=== PATIENT | female | born 1980 ===

== ENCOUNTER 2017-04-14 10:54 | Inpatient (IN) ==
[2017-04-14] MEDS ORDERED: BUTORPHANOL 2 MG/ML VIAL IV PRN (11:36)
[2017-04-14] MEDS ORDERED: ONDANSETRON 4 MG/2 ML VIAL IV PRN (11:36)
[2017-04-14] MEDS ORDERED: MEPERIDINE 50 MG/1 ML VIAL IV PRN (11:36)
[2017-04-14] MEDS ORDERED: AMPICILLIN INJ 2,000 MG in SODIUM CHLORIDE 0.9% 50 ML IV ONE (11:37)
[2017-04-14] MEDS ORDERED: LACTATED RINGERS 1,000 ML IV SCH (12:00)
[2017-04-14] MEDS ORDERED: OXYTOCIN/LR 20 UNIT/1,000 ML BAG IV SCH (12:00)
[2017-04-14 12:04] LABS: Basophils % 0.3 % (0.0-0.8); Eosinophils % 0.2 % (0.00-10.9); Hematocrit 30.5 VOL% (35.7-47.0); Hemoglobin 9.7 GM/DL (12.0-16.0); Immature Granulocytes % 0.3 %; Immature Granulocytes Absolute 0.03 #; Lymphocytes # 1.3 10*3/uL (1.4-4.0); Lymphocytes % 14.5 % (21.3-54.2); Mean Corpuscular HGB Conc 31.8 GM/DL (32-36); Mean Corpuscular Hemoglobin 23 PG (27-34); Mean Corpuscular Volume 72.6 FL (87-102); Mean Platelet Volume 10.3 FL (9.6-12.0); Monocytes # 0.6 10*3/uL (0.11-0.8); Monocytes % 6.7 % (1.7-12.7); Neutrophils # 7.2 10*3/uL (1.4-7.4); Platelet Count 244 T/CUMM (130-400); White Blood Count 9.2 T/CUMM (4-12)
[2017-04-14 12:34] LABS: Albumin 2.7 G/DL (3.4-5.0); Bilirubin,Total 0.8 MG/DL (0.2-1.0); Calcium 8.5 MG/DL (8.5-10.1); Osmolality,Calculated 271.7 MOS/KG (273-304); Potassium 3.7 MMOL/L (3.5-5.1); Total Protein 7.4 G/DL (6.4-8.3)
[2017-04-14] MEDS ORDERED: hydrOXYzine HCL 25 MG/1 ML VIAL IM PRN (14:03)
[2017-04-14] MEDS ORDERED: ePHEDrine 50 MG/ML AMP IV PRN (14:03)
[2017-04-14] MEDS ORDERED: FAMOTIDINE 20 MG/2 ML VIAL IV ONE (14:03)
[2017-04-14] MEDS ORDERED: CITRIC ACID/SODIUM CITRATE 30 ML UDCUP PO ONE (14:03)
[2017-04-14] MEDS ORDERED: ONDANSETRON 4 MG/2 ML VIAL IV ONE (14:03)
[2017-04-14] MEDS ORDERED: PROMETHAZINE 25 MG/1 ML VIAL IM ONE (14:03)
[2017-04-14] MEDS ORDERED: LACTATED RINGERS 1,000 ML IV ONE (14:03)
[2017-04-14] MEDS ORDERED: diphenhydrAMINE 50 MG/1 ML VIAL IV PRN ×2 (14:03)
[2017-04-14] MEDS ORDERED: fentaNYL 2 MCG/ROPIV 0.2% EPID 150 ML EPIDURAL SCH (14:30)
[2017-04-14] MEDS ORDERED: AMPICILLIN INJ 1,000 MG in SODIUM CHLORIDE 0.9% 50 ML IV SCH (15:30)
[2017-04-14 17:59] LABS: Apearance,Urine CLEAR (Clear); Bilirubin,Urine Negative (Negative); Blood, Urine Negative (Negative); Glucose,Urine (UA) Negative (Negative); Ketones,Urine 20 mg/dL (Negative); Mucus,Urine Occasional /LPF (Occasional); Nitrite,Urine Negative (Negative); Protein,Urine Negative; RBC,Urine <1 /HPF (0-4); Urine Color Yellow (Yellow); Urine Urobilinogen < 2.0 EU/DL (0.2-1.0); WBC,Urine <1 /HPF (0-6)
[2017-04-14] MEDS ORDERED: miSOPROStol 200 MCG TABLET ONE (19:14)
[2017-04-14] MEDS ORDERED: OXYTOCIN/LR 30 UNIT/1,000 ML BAG IV ONE (19:30)
[2017-04-14] MEDS ORDERED: ACETAMINOPHEN/CODEINE 300-30 MG TABLET PO PRN (19:40)
[2017-04-14] MEDS ORDERED: OXYTOCIN/LR 20 UNIT/1,000 ML BAG IV ONE (21:07)
[2017-04-14] MEDS ORDERED: oxyCODONE/ACETAMINOPHEN 5-325 MG TABLET PO PRN (22:57)
[2017-04-14] MEDS ORDERED: HYDROCORTISONE 2.5% RECTAL CREAM 30 GM TUBE TOP PRN (22:57)
[2017-04-14] MEDS ORDERED: LANOLIN 50% CREAM 0.3 OZ TUBE TOP PRN (22:57)
[2017-04-14] MEDS ORDERED: RHO(D) IMMUNE GLOBULIN 300 MCG SYRINGE IM ONE (22:57)
[2017-04-14] MEDS ORDERED: MEASLES/MUMPS/RUBELLA VACCINE 0.5 ML VIAL SUBCUT ONE (22:57)
[2017-04-14] MEDS ORDERED: BENZOCAINE 20%/MENTHOL 0.5% SPRAY 56 GM CAN TOP PRN (22:57)
[2017-04-14] MEDS ORDERED: WITCH HAZEL PADS 100/JAR TOP PRN (22:57)
[2017-04-14] MEDS ORDERED: DIPH/TET/ACEL PERT BOOSTER VACCINE 0.5 ML VIAL IM ONE (22:57)
[2017-04-14] MEDS ORDERED: BISACODYL 10 MG SUPP RECTAL PRN (22:57)
[2017-04-14] MEDS ORDERED: ACETAMINOPHEN 325 MG TABLET PO PRN (22:57)
[2017-04-14] MEDS: IBUPROFEN 800 MG TABLET PO PRN (23:15)
[2017-04-14] MEDS: DOCUSATE SODIUM 100 MG CAPSULE PO SCH (23:15)
[2017-04-15 06:44] LABS: Basophils % 0.2 % (0.0-0.8); Eosinophils # 0.1 10*3/uL (0.0-0.87); Eosinophils % 0.8 % (0.00-10.9); Hematocrit 25.6 VOL% (35.7-47.0); Hemoglobin 8.3 GM/DL (12.0-16.0); Immature Granulocytes % 0.5 %; Immature Granulocytes Absolute 0.06 #; Lymphocytes # 2.4 10*3/uL (1.4-4.0); Mean Corpuscular HGB Conc 32.4 GM/DL (32-36); Mean Corpuscular Hemoglobin 23 PG (27-34); Mean Corpuscular Volume 70.9 FL (87-102); Mean Platelet Volume 10.1 FL (9.6-12.0); Monocytes # 1.1 10*3/uL (0.11-0.8); Neutrophils # 8.9 10*3/uL (1.4-7.4); Neutrophils % 70.5 % (38.7-73.9); Platelet Count 228 T/CUMM (130-400); Red Blood Count 3.61 MC/CUMM (3.8-5.5); Red Cell Distribution Width 14.8 % (9.3-17.3); White Blood Count 12.6 T/CUMM (4-12)
[2017-04-15] MEDS: DOCUSATE SODIUM 100 MG CAPSULE PO SCH ×2 (09:39→20:47)
[2017-04-15] MEDS: FERROUS SULFATE 325 MG TABLET PO SCH ×2 (09:39→20:47)
[2017-04-15] MEDS: IBUPROFEN 800 MG TABLET PO PRN (09:42)
[2017-04-15] MEDS: oxyCODONE/ACETAMINOPHEN 5-325 MG TABLET PO PRN (23:07)
[2017-04-16] MEDS: FERROUS SULFATE 325 MG TABLET PO SCH ×2 (07:24→08:27)
[2017-04-16] MEDS: IBUPROFEN 800 MG TABLET PO PRN (07:45)
[2017-04-16] MEDS: oxyCODONE/ACETAMINOPHEN 5-325 MG TABLET PO PRN (07:46)
[2017-04-16 07:56] VITALS: BP 110/68
[2017-04-16] MEDS: DOCUSATE SODIUM 100 MG CAPSULE PO SCH (08:27)
== END 2017-04-16 12:30 | disposition home or self-care (01) | DRG 560 ==
LOC: N.LDOUT 10:54 → N.LD 10:59 → N.OB 22:40
PROVIDERS: ADMIT Obstetrics & Gynecology; ATTEND Obstetrics & Gynecology

== ENCOUNTER 2019-12-30 22:43 | Observation (INO) ==
[2019-12-31] MEDS ORDERED: DEXTROSE 50% 25 GM/50 ML VIAL IV PRN (00:41)
[2019-12-31] MEDS ORDERED: GLUCAGON 1 MG VIAL IM PRN (00:41)
[2019-12-31] MEDS ORDERED: ONDANSETRON 4 MG/2 ML VIAL IV PRN (00:47)
[2019-12-31] MEDS ORDERED: PNEUMOCOCCAL VACCINE (23 VALENT) 0.5 ML VIAL IM ONE (00:54)
[2019-12-31] MEDS ORDERED: POTASSIUM CHLORIDE 20 MEQ TABLET PO ONE (02:00)
[2019-12-31 02:27] LABS: Alanine Aminotransferase 36 U/L (13-56); Albumin 3.5 G/DL (3.4-5.0); Alkaline Phosphatase 60 U/L (45-117); Aspartate Amino Transferase 34 U/L (0-37); Bilirubin,Total < 0.39 MG/DL (0.2-1.0); Blood Urea Nitrogen 2 MG/DL (7-18); Calcium 8.6 MG/DL (8.5-10.1); Estimated Glom Filtration Rate 116 ML/MIN; Glucose 94 MG/DL (74-106)
[2019-12-31 07:42] LABS: Risk Ratio 3.84; VLDL CHOLESTEROL 20.8 MG/DL
[2019-12-31 08:15] LABS: Basophils % 0.7 % (0.0-0.8); Eosinophils # 0.1 10*3/uL (0.0-0.87); Eosinophils % 1.6 % (0.00-10.9); Hematocrit 25.3 VOL% (35.7-47.0); Immature Granulocytes % 0.2 %; Immature Granulocytes Absolute 0.01 #; Lymphocytes # 2.1 10*3/uL (1.4-4.0); Lymphocytes % 37.1 % (21.3-54.2); Mean Corpuscular HGB Conc 28.9 GM/DL (32-36); Mean Corpuscular Volume 64.7 FL (87-102); Mean Platelet Volume 9.9 FL (9.6-12.0); Monocytes % 10.4 % (1.7-12.7); Platelet Count 356 T/CUMM (130-400); Red Blood Count 3.91 MC/CUMM (3.8-5.5); Red Cell Distribution Width 19.9 % (9.3-17.3); White Blood Count 5.6 T/CUMM (4-12)
[2019-12-31 08:17] LABS: Hemoglobin 7.3 GM/DL (12.0-16.0)
[2019-12-31 08:21] LABS: Hypochromasia 1+; Microcytosis 1+; Platelet Estimate Adequate
[2019-12-31] MEDS ORDERED: BENZONATATE 100 MG CAPSULE PO PRN (09:17)
[2019-12-31 09:42] LABS: Basophils % 0.6 % (0.0-0.8); Eosinophils # 0.1 10*3/uL (0.0-0.87); Eosinophils % 1.5 % (0.00-10.9); Hemoglobin 7.4 GM/DL (12.0-16.0); Immature Granulocytes % 0.2 %; Immature Granulocytes Absolute 0.01 #; Lymphocytes # 1.7 10*3/uL (1.4-4.0); Lymphocytes % 31.2 % (21.3-54.2); Mean Corpuscular HGB Conc 28.5 GM/DL (32-36); Mean Corpuscular Volume 65.5 FL (87-102); Monocytes % 10.7 % (1.7-12.7); Neutrophils % 55.8 % (38.7-73.9); Platelet Count 347 T/CUMM (130-400); Red Blood Count 3.97 MC/CUMM (3.8-5.5); Red Cell Distribution Width 19.8 % (9.3-17.3); White Blood Count 5.4 T/CUMM (4-12)
[2019-12-31 09:56] LABS: Hypochromasia 1+; Microcytosis Slight; Platelet Estimate Adequate
[2019-12-31 10:01] LABS: % Iron Saturation 2.9 % (18-50); Ferritin 5.2 ng/ml (8-252)
[2019-12-31] MEDS: ENOXAPARIN 40 MG/0.4 ML SYRINGE SUBCUT SCH (10:05)
[2019-12-31] MEDS: INSULIN REGULAR 100 UNIT/ML SUBCUT SCH ×4 (10:06→22:09)
[2019-12-31] MEDS: PANTOPRAZOLE 40 MG TABLET PO SCH (10:06)
[2019-12-31 10:47] LABS: Sedimentation Rate-Westergren 16 MM/HR (0-20)
[2019-12-31 11:12] LABS: Folate 16.1 NG/ML (5.4-24.0); Vitamin B12 373 PG/ML (211-911)
[2019-12-31] MEDS ORDERED: SODIUM CHLORIDE 0.9% 1,000 ML IV PRN (12:22)
[2019-12-31] MEDS ORDERED: IRON SUCROSE 200 MG in SODIUM CHLORIDE 0.9% 100 ML IV ONE (12:30)
[2020-01-01 06:23] LABS: Basophils % 0.5 % (0.0-0.8); Eosinophils # 0.1 10*3/uL (0.0-0.87); Eosinophils % 1.5 % (0.00-10.9); Hematocrit 30.1 VOL% (35.7-47.0); Immature Granulocytes % 0.5 %; Immature Granulocytes Absolute 0.04 #; Lymphocytes # 1.5 10*3/uL (1.4-4.0); Lymphocytes % 17.8 % (21.3-54.2); Mean Corpuscular HGB Conc 29.9 GM/DL (32-36); Mean Platelet Volume 9.5 FL (9.6-12.0); Monocytes % 10.4 % (1.7-12.7); Neutrophils % 69.3 % (38.7-73.9); Platelet Count 367 T/CUMM (130-400); Red Blood Count 4.56 MC/CUMM (3.8-5.5); Red Cell Distribution Width 21.6 % (9.3-17.3); White Blood Count 8.6 T/CUMM (4-12)
[2020-01-01 06:36] LABS: Calcium 8.6 MG/DL (8.5-10.1); Osmolality,Calculated 274.4 MOS/KG (273-304)
[2020-01-01] MEDS: INSULIN REGULAR 100 UNIT/ML SUBCUT SCH ×2 (07:29→12:42)
[2020-01-01] MEDS ORDERED: FERROUS SULFATE 325 MG TABLET PO SCH (08:00)
[2020-01-01] MEDS: POTASSIUM CHLORIDE 20 MEQ TABLET PO PRN ×2 (08:43→08:45)
[2020-01-01] MEDS: ENOXAPARIN 40 MG/0.4 ML SYRINGE SUBCUT SCH (08:43)
[2020-01-01] MEDS: PANTOPRAZOLE 40 MG TABLET PO SCH (08:44)
[2020-01-01] MEDS ORDERED: FLUTICASONE 50 MCG NASAL SPRAY 16 GM BOTTLE BOTH NARES SCH (09:30)
[2020-01-01 09:54] LABS: Hemoglobin A1 (Alkaline) 97.1 % (96.5-98.5); Hemoglobin A2 (Alkaline) 2.9 % (1.5-3.5)
[2020-01-01 11:26] VITALS: BP 131/81
== END 2020-01-01 13:45 | disposition home or self-care (01) ==
LOC: N.3E → SUATTDRO 12-31
PROVIDERS: ADMIT Internal Medicine; ATTEND Internal Medicine